=== PATIENT | female | born 1940 | race Caucasian/White ===

== ENCOUNTER 2017-12-10 12:16 | Inpatient (IN) | payer MEDICARE, OTHER ==
[~2017-12-10] VITALS: Ht 157.5 cm; Wt 63.5 kg
[~2017-12-10 12:16] MED LIST: AMIO200T57 PO; ASPI-611 PO; LISI40TA4 PO; METF-517 PO; METO25TA6 PO; VITC500T PO
[2017-12-10] MEDS ORDERED: clopidogrel 75mg tablet PO ONE (19:55)
[2017-12-10 20:42] LABS: BASOPHILS % (AUTO) 0.6 % (0-1); EOSINOPHILS # (AUTO) 0.3 X10'3 (0-0.9); EOSINOPHILS % (AUTO) 3.9 % (0-6); HEMATOCRIT 28.4 % (35.0-45.0); HEMOGLOBIN 9.6 g/dl (12.0-16.0); LYMPHOCYTES # (AUTO) 2.6 X10'3 (1.1-4.8); LYMPHOCYTES % (AUTO) 39.7 % (21-51); MEAN CORPUSCULAR HEMOGLOBIN 31.4 PG (27.0-31.0); MEAN CORPUSCULAR VOLUME 92.3 FL (78-98); MONOCYTES # (AUTO) 0.4 X10'3 (0-0.9); MONOCYTES % (AUTO) 5.9 % (2-12); NEUTROPHILS # (AUTO) 3.3 X10'3 (1.8-7.7); NEUTROPHILS % (AUTO) 49.9 % (42-75); PLATELET COUNT 236 X10'3 (140-440); RED BLOOD COUNT 3.08 X10'6 (4.20-5.60); RED CELL DISTRIBUTION WIDTH 13.9 % (11.5-14.5); WHITE BLOOD COUNT 6.5 X10'3 (4.5-11.0)
[2017-12-10 20:54] LABS: PARTIAL THROMBOPLASTIN TIME 27 SECONDS (22-32); PROTHROMBIN TIME 10.1 SECONDS (9.0-12.0)
[2017-12-10 20:57] LABS: ALANINE AMINOTRANSFERASE 9 U/L (12-78); ALBUMIN 3.6 G/DL (3.4-5.0); ALBUMIN/GLOBULIN RATIO 1.1 (1.1-1.5); ALKALINE PHOSPHATASE 89 IU/L (46-116); ANION GAP 14 (8-16); ASPARTATE AMINO TRANSFERASE 5 U/L (10-37); BILIRUBIN,TOTAL 0.2 MG/DL (0.1-1.0); BLOOD UREA NITROGEN 37 MG/DL (7-18); BUN/CREATININE RATIO 19.8 (6.6-38.0); CALCIUM 8.9 MG/DL (8.5-10.1); CHLORIDE 109 MMOL/L (99-107); CREATININE 1.87 MG/DL (0.40-0.90); GLUCOSE 132 MG/DL (70-104); SODIUM 145 MMOL/L (135-145); TOTAL CARBON DIOXIDE 22.3 MMOL/L (24-32); TOTAL PROTEIN 6.8 G/DL (6.4-8.2); eGFR 26 ML/MIN
[2017-12-11] VITALS (14 sets, daily range): BP systolic 87–118; BP diastolic 38–46
[2017-12-11] MEDS ORDERED: LORazepam 2 mg/ml vial IV ONE (00:10)
[2017-12-11] MEDS ORDERED: magnesium hydroxide 30ml (MOM) UD suspension PO PRN (02:20)
[2017-12-11] MEDS ORDERED: glucagon, human recombinant 1mg kit SUBCUT PRN (02:20)
[2017-12-11] MEDS ORDERED: diphenhydrAMINE 25mg capsule PO PRN (02:20)
[2017-12-11] MEDS ORDERED: dextrose ORAL solution 15 GM/59 ML bottle PO PRN ×2 (02:20)
[2017-12-11] MEDS ORDERED: HYDROmorphone inj. 0.5 MG/0.5 ML DISP.SYRIN IV PRN ×4 (02:20→17:25)
[2017-12-11] MEDS ORDERED: HYDROcodone/acetaminophen 10/325mg tab PO PRN (02:20)
[2017-12-11] MEDS ORDERED: ondansetron/PF 4mg/2ml inj IV PRN ×2 (02:20→17:25)
[2017-12-11] MEDS ORDERED: metoclopramide 5 mg/ml inj IV PRN (02:20)
[2017-12-11] MEDS ORDERED: MESSAGE TO PHARMACY PO ONE (02:20)
[2017-12-11] MEDS ORDERED: acetaminophen 650mg rectal suppository RC PRN (02:20)
[2017-12-11] MEDS ORDERED: bisacodyl 10mg suppository rectal RC PRN (02:20)
[2017-12-11] MEDS ORDERED: dextrose 50%-water 50ml dispensing syringe IV PRN ×2 (02:20)
[2017-12-11] MEDS ORDERED: diphenhydrAMINE 50 mg/ml inj IV PRN (02:20)
[2017-12-11] MEDS ORDERED: acetaminophen 325mg tablet PO PRN ×2 (02:20)
[2017-12-11] MEDS ORDERED: mag hydrox/Alum hydrox/simeth 30ml oral suspension PO PRN (02:20)
[2017-12-11 02:47] LABS: HEMOGLOBIN A1C 7.9 % (4.5-6.2)
[2017-12-11 02:53] LABS: MAGNESIUM 1.6 MG/DL (1.5-2.4); PHOSPHORUS 3.8 MG/DL (2.3-4.5)
[2017-12-11] MEDS: normal saline 1000ml 1,000 ML IV SCH ×2 (05:36→14:04)
[2017-12-11] MEDS: metoprolol tartrate 25mg tablet PO SCH ×3 (08:00→20:00)
[2017-12-11] MEDS: pantoprazole 40mg Tablet.DR PO SCH (08:07)
[2017-12-11] MEDS: aspirin 81mg tablet.DR PO SCH (08:08)
[2017-12-11] MEDS: amiodarone 200mg tablet PO SCH (08:08)
[2017-12-11] MEDS: lisinopril 20mg tablet PO SCH ×2 (08:08→20:00)
[2017-12-11] MEDS: clopidogrel 75mg tablet PO SCH (08:08)
[2017-12-11] MEDS: ascorbic acid 500mg tablet PO SCH (08:08)
[2017-12-11] MEDS: heparin, porcine 5000 units/ml vial SQ SCH ×2 (08:09→20:00)
[2017-12-11] MEDS ORDERED: LEVO50TA8 PO (12:04)
[2017-12-11] MEDS ORDERED: ESCI20TA38 PO (12:04)
[2017-12-11] MEDS ORDERED: CLOP75TA35 PO (12:04)
[2017-12-11] MEDS ORDERED: ATOR40TA72 (12:05)
[2017-12-11] MEDS ORDERED: ceFAZolin 2gm in dextrose, iso 100 ML IV ONE (13:20)
[2017-12-11] MEDS ORDERED: ceFAZolin 1000mg inj ONE ×4 (13:31→18:49)
[2017-12-11] MEDS ORDERED: heparin 10,000 units/1 ML INJ ONE ×2 (13:31→14:49)
[2017-12-11] MEDS ORDERED: midazolam 2 mg/2 ml injection ONE (14:25)
[2017-12-11] MEDS ORDERED: fentaNYL /PF 50mcg/ml 5ml ampule ONE ×2 (14:26→19:19)
[2017-12-11] MEDS ORDERED: sevoflurane 250ml liquid IH ONE (14:28)
[2017-12-11] MEDS ORDERED: propofol inj 20 ML IV ONE (17:02)
[2017-12-11] MEDS ORDERED: albumin (Human) 5% 250ml 250 ML IV ONE ×2 (17:02→17:03)
[2017-12-11] MEDS ORDERED: LIDOcaine 2% (20mg/ml) 5ml vial ONE (17:02)
[2017-12-11] MEDS ORDERED: heparin 1,000unit/ml 10ml vial 10 ML ONE (17:03)
[2017-12-11] MEDS ORDERED: ePHEDrine 50MG/ML INJ. ONE (17:03)
[2017-12-11] MEDS ORDERED: rocuronium 10mg/ml inj IV ONE (17:03)
[2017-12-11] MEDS ORDERED: ringers solution, lacted 1,000 ML IV SCH (17:24)
[2017-12-11] MEDS ORDERED: fentaNYL/PF 50MCG/1 ML 2ML syringe IV PRN ×3 (17:25→19:30)
[2017-12-11] MEDS ORDERED: meperidine/PF 50mg/ml syringe IV PRN (17:25)
[2017-12-11] MEDS ORDERED: proCHLORperazine 10 MG/2 ml inj IV PRN (17:25)
[2017-12-11] MEDS ORDERED: HYDROmorphone 1 mg/ml syringe ONE (19:19)
[2017-12-11] MEDS ORDERED: midazolam 2 mg/2 ml injection IV ONE (19:30)
[2017-12-11] MEDS ORDERED: FENTANYL-0.9 % NACL/PF 100 ML IV SCH (20:00)
[2017-12-11] MEDS ORDERED: FENTANYL-0.9 % NACL/PF 100 ML IV PRN (20:02)
[2017-12-11 20:36] LABS: ABG BASE EXCESS -9.2 mmol/L (-2.0-3.0); ABG HCO3 16.2 mmol/L (22.0-26.0); ABG OXYGEN SATURATION 98.8 % (95-98); ABG PCO2 (T) 31.9 mmHg (32.0-45.0); ABG PO2 (T) 184.3 mmHg (83-108); FCOHb 0.5 % (0.5-1.5); FMetHb 0.3 % (0.3-1.12); PATIENT TEMPERATURE 36.5; PEEP 5 cm H2O; RESPIRATORY RATE 12 b/min; RESPIRATORY RATE (OBSERVED) 12 b/min; TIDAL VOLUME 400 mL; TOTAL HEMOGLOBIN 5.8 G/dl (12.0-16.0)
[2017-12-11 20:40] LABS: BASOPHILS % (AUTO) 0.2 % (0-1); EOSINOPHILS # (AUTO) 0.1 X10'3 (0-0.9); EOSINOPHILS % (AUTO) 1.3 % (0-6); LYMPHOCYTES # (AUTO) 0.9 X10'3 (1.1-4.8); LYMPHOCYTES % (AUTO) 16.7 % (21-51); MEAN CORPUSCULAR HEMOGLOBIN 31.5 PG (27.0-31.0); MEAN CORPUSCULAR VOLUME 92.4 FL (78-98); MEAN PLATELET VOLUME 8.3 FL (7.4-10.4); MONOCYTES # (AUTO) 0.3 X10'3 (0-0.9); MONOCYTES % (AUTO) 4.9 % (2-12); NEUTROPHILS # (AUTO) 4.3 X10'3 (1.8-7.7); NEUTROPHILS % (AUTO) 76.9 % (42-75); PLATELET COUNT 152 X10'3 (140-440); RED BLOOD COUNT 1.75 X10'6 (4.20-5.60); RED CELL DISTRIBUTION WIDTH 14.4 % (11.5-14.5); WHITE BLOOD COUNT 5.6 X10'3 (4.5-11.0)
[2017-12-11 20:54] LABS: ALANINE AMINOTRANSFERASE 11 U/L (12-78); ALBUMIN 2.2 G/DL (3.4-5.0); ALBUMIN/GLOBULIN RATIO 1.6 (1.1-1.5); ALKALINE PHOSPHATASE 30 IU/L (46-116); ANION GAP 10 (8-16); ASPARTATE AMINO TRANSFERASE 15 U/L (10-37); BILIRUBIN,TOTAL 0.2 MG/DL (0.1-1.0); BLOOD UREA NITROGEN 23 MG/DL (7-18); BUN/CREATININE RATIO 17.2 (6.6-38.0); CHLORIDE 114 MMOL/L (99-107); CREATININE 1.34 MG/DL (0.40-0.90); GLUCOSE 132 MG/DL (70-104); HEMATOCRIT 16.2 % (35.0-45.0); HEMOGLOBIN 5.5 g/dl (12.0-16.0); MAGNESIUM 1.2 MG/DL (1.5-2.4); SODIUM 143 MMOL/L (135-145); TOTAL CARBON DIOXIDE 19.5 MMOL/L (24-32); TOTAL PROTEIN 3.6 G/DL (6.4-8.2); eGFR 39 ML/MIN
[2017-12-11] MEDS ORDERED: temazepam 15mg capsule PO PRN (21:00)
[2017-12-11] MEDS: insulin glargine (Lantus) pen - multi-dose SQ SCH (21:00)
[2017-12-11 21:09] LABS: INR 1.3 INR; PROTHROMBIN TIME 13.2 SECONDS (9.0-12.0)
[2017-12-11 21:13] LABS: PARTIAL THROMBOPLASTIN TIME > 153 SECONDS (22-32)
[2017-12-11] MEDS ORDERED: NORepinephrine 8mg/ 250ml NS 250 ML IV PRN (21:23)
[2017-12-11] MEDS ORDERED: protamine sulf. 10mg/ml inj. IV ONE (21:35)
[2017-12-11] MEDS: clindamycin 600mg/D5W 50ml 50 ML IV SCH (21:49)
[2017-12-11] MEDS: midazolam 100mg in NS 100ml 100 ML IV PRN (22:18)
[2017-12-11] MEDS: Potassium Cl inj 20 MEQ in ringers solution, lacted 1,000 ML IV SCH (22:20)
[2017-12-12] VITALS (24 sets, daily range): BP systolic 98–133; BP diastolic 36–55
[2017-12-12 02:30] LABS: BASOPHILS % (AUTO) 0.2 % (0-1); EOSINOPHILS # (AUTO) 0.2 X10'3 (0-0.9); EOSINOPHILS % (AUTO) 1.6 % (0-6); HEMATOCRIT 28.2 % (35.0-45.0); HEMOGLOBIN 9.5 g/dl (12.0-16.0); LYMPHOCYTES # (AUTO) 0.9 X10'3 (1.1-4.8); LYMPHOCYTES % (AUTO) 7.2 % (21-51); MEAN CORPUSCULAR HEMOGLOBIN 30.4 PG (27.0-31.0); MEAN CORPUSCULAR HGB CONC 33.8 % (33.0-36.5); MEAN CORPUSCULAR VOLUME 89.8 FL (78-98); MEAN PLATELET VOLUME 8.2 FL (7.4-10.4); MONOCYTES # (AUTO) 0.9 X10'3 (0-0.9); MONOCYTES % (AUTO) 7.4 % (2-12); NEUTROPHILS # (AUTO) 10.2 X10'3 (1.8-7.7); NEUTROPHILS % (AUTO) 83.6 % (42-75); PLATELET COUNT 152 X10'3 (140-440); RED BLOOD COUNT 3.14 X10'6 (4.20-5.60); RED CELL DISTRIBUTION WIDTH 15.3 % (11.5-14.5); WHITE BLOOD COUNT 12.2 X10'3 (4.5-11.0)
[2017-12-12 02:41] LABS: INR 1.1 INR; PARTIAL THROMBOPLASTIN TIME 30 SECONDS (22-32); PROTHROMBIN TIME 11.7 SECONDS (9.0-12.0)
[2017-12-12 02:45] LABS: ALANINE AMINOTRANSFERASE 10 U/L (12-78); ALBUMIN 2.6 G/DL (3.4-5.0); ALBUMIN/GLOBULIN RATIO 1.4 (1.1-1.5); ALKALINE PHOSPHATASE 39 IU/L (46-116); ANION GAP 11 (8-16); ASPARTATE AMINO TRANSFERASE 13 U/L (10-37); BILIRUBIN,TOTAL 0.3 MG/DL (0.1-1.0); BLOOD UREA NITROGEN 25 MG/DL (7-18); BUN/CREATININE RATIO 15.8 (6.6-38.0); CALCIUM 7.2 MG/DL (8.5-10.1); CHLORIDE 111 MMOL/L (99-107); CREATININE 1.58 MG/DL (0.40-0.90); GLUCOSE 222 MG/DL (70-104); POTASSIUM 4.7 MMOL/L (3.5-5.1); SODIUM 143 MMOL/L (135-145); TOTAL CARBON DIOXIDE 20.7 MMOL/L (24-32); TOTAL PROTEIN 4.5 G/DL (6.4-8.2); eGFR 32 ML/MIN
[2017-12-12] MEDS: clindamycin 600mg/D5W 50ml 50 ML IV SCH ×4 (02:47→20:29)
[2017-12-12 03:26] LABS: ABG BASE EXCESS -11.9 mmol/L (-2.0-3.0); ABG OXYGEN SATURATION 97.3 % (95-98); ABG PCO2 (T) 43.7 mmHg (32.0-45.0); ABG PH (T) 7.178 (7.350-7.450); ABG PO2 (T) 114.5 mmHg (83-108); FCOHb 0.3 % (0.5-1.5); FMetHb 0.2 % (0.3-1.12); FO2Hb 96.8 % (94-100); MINUTE VOLUME 5 L/min; PATIENT TEMPERATURE 36.5; PEEP 5 cm H2O; RESPIRATORY RATE 12 b/min; RESPIRATORY RATE (OBSERVED) 12 b/min; TIDAL VOLUME 400 mL; TOTAL HEMOGLOBIN 10.3 G/dl (12.0-16.0)
[2017-12-12] MEDS: Potassium Cl inj 20 MEQ in ringers solution, lacted 1,000 ML IV SCH ×3 (03:51→16:31)
[2017-12-12] MEDS: lisinopril 20mg tablet PO SCH ×2 (08:00→20:28)
[2017-12-12] MEDS: levoFLOXACIN-Levaquin 500mg/D5 100 ML IV SCH (08:21)
[2017-12-12] MEDS: ascorbic acid 500mg tablet PO SCH (08:23)
[2017-12-12] MEDS: pantoprazole 40mg Tablet.DR PO SCH (08:23)
[2017-12-12] MEDS: amiodarone 200mg tablet PO SCH (08:23)
[2017-12-12] MEDS: metoprolol tartrate 25mg tablet PO SCH ×2 (08:24→20:28)
[2017-12-12] MEDS: insulin Lispro (HumaLOG) vial - multi-dose SQ SCH ×2 (08:50→13:52)
[2017-12-12 11:11] LABS: ABG BASE EXCESS -9.6 mmol/L (-2.0-3.0); ABG HCO3 16.1 mmol/L (22.0-26.0); ABG OXYGEN SATURATION 97.3 % (95-98); ABG PCO2 (T) 34.3 mmHg (32.0-45.0); ABG PH (T) 7.289 (7.350-7.450); ABG PO2 (T) 110.6 mmHg (83-108); FCOHb 0.3 % (0.5-1.5); FMetHb 0.3 % (0.3-1.12); FO2Hb 96.7 % (94-100); MINUTE VOLUME 7 L/min; PEEP 5 cm H2O; RESPIRATORY RATE 16 b/min; RESPIRATORY RATE (OBSERVED) 16 b/min; TIDAL VOLUME 400 mL; TOTAL HEMOGLOBIN 8.8 G/dl (12.0-16.0)
[2017-12-12] MEDS: heparin, porcine 5000 units/ml vial SQ SCH ×2 (11:20→20:28)
[2017-12-12] MEDS: aspirin 81mg tablet.DR PO SCH (11:20)
[2017-12-12] MEDS: clopidogrel 75mg tablet PO SCH (11:20)
[2017-12-12] MEDS ORDERED: mineral oil/petrolatum ophthal oint EACHEYE SCH (20:00)
[2017-12-12] MEDS: mineral oil/petrolatum ophthal oint EACHEYE SCH (20:23)
[2017-12-12] MEDS: insulin glargine (Lantus) pen - multi-dose SQ SCH (21:00)
[2017-12-13] VITALS (29 sets, daily range): BP systolic 107–177; BP diastolic 40–66
[2017-12-13] MEDS: Potassium Cl inj 20 MEQ in ringers solution, lacted 1,000 ML IV SCH ×3 (01:58→19:58)
[2017-12-13] MEDS: clindamycin 600mg/D5W 50ml 50 ML IV SCH ×4 (02:44→19:56)
[2017-12-13] MEDS: mineral oil/petrolatum ophthal oint EACHEYE SCH ×4 (02:44→19:56)
[2017-12-13 02:49] LABS: BASOPHILS % (AUTO) 0.3 % (0-1); EOSINOPHILS # (AUTO) 0.1 X10'3 (0-0.9); EOSINOPHILS % (AUTO) 1.2 % (0-6); HEMOGLOBIN 7.4 g/dl (12.0-16.0); LYMPHOCYTES % (AUTO) 17.6 % (21-51); MEAN CORPUSCULAR HEMOGLOBIN 30.5 PG (27.0-31.0); MEAN CORPUSCULAR HGB CONC 34.3 % (33.0-36.5); MEAN CORPUSCULAR VOLUME 88.9 FL (78-98); MEAN PLATELET VOLUME 8.4 FL (7.4-10.4); MONOCYTES # (AUTO) 0.6 X10'3 (0-0.9); MONOCYTES % (AUTO) 11.5 % (2-12); NEUTROPHILS # (AUTO) 3.9 X10'3 (1.8-7.7); NEUTROPHILS % (AUTO) 69.4 % (42-75); PLATELET COUNT 113 X10'3 (140-440); RED BLOOD COUNT 2.43 X10'6 (4.20-5.60); RED CELL DISTRIBUTION WIDTH 15.9 % (11.5-14.5); WHITE BLOOD COUNT 5.6 X10'3 (4.5-11.0)
[2017-12-13 03:00] LABS: HEMATOCRIT 21.6 % (35.0-45.0)
[2017-12-13 03:16] LABS: ALBUMIN 2.1 G/DL (3.4-5.0); ALBUMIN/GLOBULIN RATIO 1.1 (1.1-1.5); ALKALINE PHOSPHATASE 31 IU/L (46-116); ANION GAP 10 (8-16); ASPARTATE AMINO TRANSFERASE 18 U/L (10-37); BILIRUBIN,TOTAL 0.2 MG/DL (0.1-1.0); BLOOD UREA NITROGEN 19 MG/DL (7-18); BUN/CREATININE RATIO 14.6 (6.6-38.0); CHLORIDE 113 MMOL/L (99-107); GLUCOSE 120 MG/DL (70-104); POTASSIUM 4.2 MMOL/L (3.5-5.1); SODIUM 142 MMOL/L (135-145); TOTAL CARBON DIOXIDE 18.7 MMOL/L (24-32); eGFR 40 ML/MIN
[2017-12-13 03:19] LABS: ALANINE AMINOTRANSFERASE < 6 U/L (12-78)
[2017-12-13 03:21] LABS: ABG BASE EXCESS -2.4 mmol/L (-2.0-3.0); ABG HCO3 21.6 mmol/L (22.0-26.0); ABG OXYGEN SATURATION 97.4 % (95-98); ABG PCO2 (T) 33.2 mmHg (32.0-45.0); ABG PO2 (T) 105.9 mmHg (83-108); FCOHb 0.3 % (0.5-1.5); FMetHb 0.2 % (0.3-1.12); FO2Hb 96.9 % (94-100); MINUTE VOLUME 7 L/min; PATIENT TEMPERATURE 36.5; PEEP 5 cm H2O; RESPIRATORY RATE 16 b/min; RESPIRATORY RATE (OBSERVED) 16 b/min; TIDAL VOLUME 400 mL; TOTAL HEMOGLOBIN 7.9 G/dl (12.0-16.0)
[2017-12-13] MEDS: midazolam 100mg in NS 100ml 100 ML IV PRN (04:49)
[2017-12-13] MEDS: lisinopril 20mg tablet PO SCH ×2 (08:14→19:57)
[2017-12-13] MEDS: ascorbic acid 500mg tablet PO SCH (08:14)
[2017-12-13] MEDS: pantoprazole 40mg Tablet.DR PO SCH (08:14)
[2017-12-13] MEDS: aspirin 81mg tablet.DR PO SCH (08:14)
[2017-12-13] MEDS: clopidogrel 75mg tablet PO SCH (08:14)
[2017-12-13] MEDS: heparin, porcine 5000 units/ml vial SQ SCH ×2 (08:15→19:57)
[2017-12-13] MEDS: levoFLOXACIN-Levaquin 500mg/D5 100 ML IV SCH (08:15)
[2017-12-13] MEDS: metoprolol tartrate 25mg tablet PO SCH ×2 (09:23→19:57)
[2017-12-13] MEDS: amiodarone 200mg tablet PO SCH (09:23)
[2017-12-13 09:52] LABS: HEMOGLOBIN 8.3 g/dl (12.0-16.0); MEAN CORPUSCULAR HEMOGLOBIN 31.2 PG (27.0-31.0); MEAN CORPUSCULAR HGB CONC 34.7 % (33.0-36.5); MEAN CORPUSCULAR VOLUME 89.9 FL (78-98); MEAN PLATELET VOLUME 8.4 FL (7.4-10.4); PLATELET COUNT 117 X10'3 (140-440); RED BLOOD COUNT 2.67 X10'6 (4.20-5.60); RED CELL DISTRIBUTION WIDTH 15.8 % (11.5-14.5); WHITE BLOOD COUNT 6.3 X10'3 (4.5-11.0)
[2017-12-13] MEDS: dexmedetomidin/NS 400mcg/100ml 100 ML IV SCH (10:58)
[2017-12-13] MEDS ORDERED: ipratropium/albuterol 3ml nebule NEB PRN (12:40)
[2017-12-13] MEDS ORDERED: naloxone 0.4 mg/ml inj IV PRN ×2 (12:40)
[2017-12-13] MEDS ORDERED: racepinephrine 11.25mg/0.5ml nebule NEB PRN (12:40)
[2017-12-13] MEDS ORDERED: CADD PCA waste documentation MC PRN ×2 (12:40)
[2017-12-13] MEDS ORDERED: HYDROmorphone/NS 1 mg/ml CADD 50 ML IV SCH (12:55)
[2017-12-13] MEDS: ipratropium/albuterol 3ml nebule NEB SCH ×2 (15:00→21:12)
[2017-12-13] MEDS: sennosides/docusate sodium tablet PO SCH (19:57)
[2017-12-13] MEDS: nitroGLYCERIN-Tridil 50MG/D5W 250 ML IV PRN (19:58)
[2017-12-13] MEDS: docusate sod 100mg capsule PO SCH (19:59)
[2017-12-13] MEDS: insulin glargine (Lantus) pen - multi-dose SQ SCH (21:00)
[2017-12-14] VITALS (24 sets, daily range): BP systolic 99–164; BP diastolic 37–75
[2017-12-14] MEDS: mineral oil/petrolatum ophthal oint EACHEYE SCH ×2 (01:41→08:35)
[2017-12-14] MEDS: clindamycin 600mg/D5W 50ml 50 ML IV SCH ×4 (01:41→20:22)
[2017-12-14] MEDS: nitroGLYCERIN-Tridil 50MG/D5W 250 ML IV PRN (01:42)
[2017-12-14 03:25] LABS: BASOPHILS % (AUTO) 0.3 % (0-1); EOSINOPHILS # (AUTO) 0.1 X10'3 (0-0.9); EOSINOPHILS % (AUTO) 1.1 % (0-6); HEMATOCRIT 22.1 % (35.0-45.0); HEMOGLOBIN 7.7 g/dl (12.0-16.0); LYMPHOCYTES # (AUTO) 0.6 X10'3 (1.1-4.8); LYMPHOCYTES % (AUTO) 8.7 % (21-51); MEAN CORPUSCULAR HEMOGLOBIN 31.4 PG (27.0-31.0); MEAN CORPUSCULAR HGB CONC 34.8 % (33.0-36.5); MEAN CORPUSCULAR VOLUME 90.2 FL (78-98); MEAN PLATELET VOLUME 8.9 FL (7.4-10.4); MONOCYTES # (AUTO) 0.8 X10'3 (0-0.9); MONOCYTES % (AUTO) 11.4 % (2-12); NEUTROPHILS # (AUTO) 5.6 X10'3 (1.8-7.7); NEUTROPHILS % (AUTO) 78.5 % (42-75); PLATELET COUNT 105 X10'3 (140-440); RED BLOOD COUNT 2.45 X10'6 (4.20-5.60); WHITE BLOOD COUNT 7.1 X10'3 (4.5-11.0)
[2017-12-14] MEDS: ipratropium/albuterol 3ml nebule NEB SCH ×4 (03:32→20:54)
[2017-12-14 03:46] LABS: ABG HCO3 20.4 mmol/L (22.0-26.0); ABG OXYGEN SATURATION 97.1 % (95-98); ABG PCO2 (T) 30.8 mmHg (32.0-45.0); ABG PH (T) 7.443 (7.350-7.450); ABG PO2 (T) 95.2 mmHg (83-108); FCOHb 0.3 % (0.5-1.5); FMetHb 0.7 % (0.3-1.12); FO2Hb 96.1 % (94-100); MINUTE VOLUME 7 L/min; PATIENT TEMPERATURE 37.8; PEEP 5 cm H2O; RESPIRATORY RATE (OBSERVED) 10 b/min; TOTAL HEMOGLOBIN 7.8 G/dl (12.0-16.0)
[2017-12-14 03:57] LABS: ALANINE AMINOTRANSFERASE 6 U/L (12-78); ALBUMIN/GLOBULIN RATIO 0.9 (1.1-1.5); ALKALINE PHOSPHATASE 34 IU/L (46-116); ANION GAP 12 (8-16); ASPARTATE AMINO TRANSFERASE 28 U/L (10-37); BILIRUBIN,TOTAL 0.4 MG/DL (0.1-1.0); BLOOD UREA NITROGEN 17 MG/DL (7-18); BUN/CREATININE RATIO 11.9 (6.6-38.0); CALCIUM 7.7 MG/DL (8.5-10.1); CHLORIDE 107 MMOL/L (99-107); CREATININE 1.43 MG/DL (0.40-0.90); GLUCOSE 168 MG/DL (70-104); POTASSIUM 4.3 MMOL/L (3.5-5.1); SODIUM 137 MMOL/L (135-145); TOTAL CARBON DIOXIDE 18.4 MMOL/L (24-32); TOTAL PROTEIN 4.3 G/DL (6.4-8.2); eGFR 36 ML/MIN
[2017-12-14] MEDS: Potassium Cl inj 20 MEQ in ringers solution, lacted 1,000 ML IV SCH ×3 (06:06→16:44)
[2017-12-14] MEDS: docusate sod 100mg capsule PO SCH ×2 (08:00→20:22)
[2017-12-14] MEDS: lisinopril 20mg tablet PO SCH ×2 (08:00→20:22)
[2017-12-14] MEDS: K and/or MAG REPLACEMENT MC SCH (08:00)
[2017-12-14] MEDS: metoprolol tartrate 25mg tablet PO SCH ×2 (08:31→20:21)
[2017-12-14] MEDS: levoFLOXACIN-Levaquin 500mg/D5 100 ML IV SCH (08:31)
[2017-12-14] MEDS: heparin, porcine 5000 units/ml vial SQ SCH ×2 (08:31→20:21)
[2017-12-14] MEDS: sennosides/docusate sodium tablet PO SCH ×2 (08:31→20:22)
[2017-12-14] MEDS: ascorbic acid 500mg tablet PO SCH (08:32)
[2017-12-14] MEDS: pantoprazole 40mg Tablet.DR PO SCH (08:32)
[2017-12-14] MEDS: amiodarone 200mg tablet PO SCH (08:32)
[2017-12-14] MEDS: clopidogrel 75mg tablet PO SCH (08:32)
[2017-12-14] MEDS: aspirin 81mg tablet.DR PO SCH (08:32)
[2017-12-14 09:07] LABS: PHOSPHORUS 2.7 MG/DL (2.3-4.5)
[2017-12-14] MEDS ORDERED: magnesium 2GM in 50ml NS 50 ML IV PRN (09:15)
[2017-12-14] MEDS ORDERED: potassium Cl 40MEQ/250ML bag 250 ML IV PRN ×2 (09:15)
[2017-12-14] MEDS ORDERED: magnesium 4gm in 100ml NS 100 ML IV PRN (09:15)
[2017-12-14] MEDS: niCARDipine/sod cl 20mg/200ml 200 ML IV SCH ×3 (14:33→22:20)
[2017-12-14] MEDS ORDERED: HYDROmorphone 1 mg/ml syringe IV PRN (19:35)
[2017-12-14] MEDS: lactobacillus rhamnosus 10,000 MMU CELLS/CAPSULE PO SCH (20:22)
[2017-12-14] MEDS: insulin glargine (Lantus) pen - multi-dose SQ SCH (20:22)
[2017-12-14] MEDS: dexmedetomidin/NS 400mcg/100ml 100 ML IV SCH (23:09)
[2017-12-15] VITALS (24 sets, daily range): BP systolic 102–160; BP diastolic 44–78
[2017-12-15] MEDS: HYDROmorphone 1 mg/ml syringe IV PRN ×4 (00:25→23:29)
[2017-12-15] MEDS: Potassium Cl inj 20 MEQ in ringers solution, lacted 1,000 ML IV SCH (00:27)
[2017-12-15] MEDS: clindamycin 600mg/D5W 50ml 50 ML IV SCH ×4 (01:39→19:18)
[2017-12-15] MEDS: niCARDipine/sod cl 20mg/200ml 200 ML IV SCH ×6 (02:20→21:42)
[2017-12-15] MEDS: ipratropium/albuterol 3ml nebule NEB SCH ×4 (03:00→20:01)
[2017-12-15 03:33] LABS: BASOPHILS % (AUTO) 0.4 % (0-1); EOSINOPHILS # (AUTO) 0.1 X10'3 (0-0.9); EOSINOPHILS % (AUTO) 1.6 % (0-6); HEMATOCRIT 22.9 % (35.0-45.0); HEMOGLOBIN 7.9 g/dl (12.0-16.0); LYMPHOCYTES # (AUTO) 0.9 X10'3 (1.1-4.8); LYMPHOCYTES % (AUTO) 12.5 % (21-51); MEAN CORPUSCULAR HEMOGLOBIN 31.1 PG (27.0-31.0); MEAN CORPUSCULAR HGB CONC 34.6 % (33.0-36.5); MEAN PLATELET VOLUME 8.3 FL (7.4-10.4); MONOCYTES # (AUTO) 0.6 X10'3 (0-0.9); MONOCYTES % (AUTO) 8.4 % (2-12); NEUTROPHILS # (AUTO) 5.5 X10'3 (1.8-7.7); NEUTROPHILS % (AUTO) 77.1 % (42-75); PLATELET COUNT 121 X10'3 (140-440); RED BLOOD COUNT 2.55 X10'6 (4.20-5.60); RED CELL DISTRIBUTION WIDTH 15.4 % (11.5-14.5); WHITE BLOOD COUNT 7.2 X10'3 (4.5-11.0)
[2017-12-15 03:44] LABS: ALANINE AMINOTRANSFERASE 11 U/L (12-78); ALBUMIN/GLOBULIN RATIO 0.7 (1.1-1.5); ALKALINE PHOSPHATASE 39 IU/L (46-116); ANION GAP 8 (8-16); ASPARTATE AMINO TRANSFERASE 25 U/L (10-37); BILIRUBIN,TOTAL 0.4 MG/DL (0.1-1.0); BLOOD UREA NITROGEN 16 MG/DL (7-18); BUN/CREATININE RATIO 10.1 (6.6-38.0); CHLORIDE 109 MMOL/L (99-107); CREATININE 1.58 MG/DL (0.40-0.90); GLUCOSE 108 MG/DL (70-104); MAGNESIUM 2.4 MG/DL (1.5-2.4); PHOSPHORUS 3.2 MG/DL (2.3-4.5); POTASSIUM 4.8 MMOL/L (3.5-5.1); SODIUM 140 MMOL/L (135-145); TOTAL CARBON DIOXIDE 22.6 MMOL/L (24-32); TOTAL PROTEIN 4.7 G/DL (6.4-8.2); eGFR 32 ML/MIN
[2017-12-15] MEDS: K and/or MAG REPLACEMENT MC SCH (07:05)
[2017-12-15] MEDS: pantoprazole 40mg Tablet.DR PO SCH (07:39)
[2017-12-15] MEDS: docusate sod 100mg capsule PO SCH ×2 (07:40→19:20)
[2017-12-15] MEDS: amiodarone 200mg tablet PO SCH (07:40)
[2017-12-15] MEDS: lactobacillus rhamnosus 10,000 MMU CELLS/CAPSULE PO SCH ×2 (07:40→19:19)
[2017-12-15] MEDS: aspirin 81mg tablet.DR PO SCH (07:40)
[2017-12-15] MEDS: ascorbic acid 500mg tablet PO SCH (07:41)
[2017-12-15] MEDS: multivitamins, therapeutics tablet PO SCH (07:41)
[2017-12-15] MEDS: clopidogrel 75mg tablet PO SCH (07:41)
[2017-12-15] MEDS: heparin, porcine 5000 units/ml vial SQ SCH ×2 (07:42→19:19)
[2017-12-15] MEDS: metoprolol tartrate 25mg tablet PO SCH ×2 (07:45→19:19)
[2017-12-15] MEDS: sennosides/docusate sodium tablet PO SCH ×2 (07:45→19:20)
[2017-12-15] MEDS: lisinopril 20mg tablet PO SCH ×2 (07:46→19:19)
[2017-12-15] MEDS: LACTOSE-FREE FOOD 237ML (BOOST) PO SCH ×2 (13:15→19:19)
[2017-12-15] MEDS: insulin glargine (Lantus) pen - multi-dose SQ SCH (19:20)
[2017-12-16] VITALS (21 sets, daily range): BP systolic 120–169; BP diastolic 44–75
[2017-12-16] MEDS: clindamycin 600mg/D5W 50ml 50 ML IV SCH ×4 (02:36→19:24)
[2017-12-16] MEDS: niCARDipine/sod cl 20mg/200ml 200 ML IV SCH ×4 (02:37→14:19)
[2017-12-16 02:48] LABS: BASOPHILS % (AUTO) 0.3 % (0-1); EOSINOPHILS # (AUTO) 0.1 X10'3 (0-0.9); EOSINOPHILS % (AUTO) 1.6 % (0-6); HEMATOCRIT 24.9 % (35.0-45.0); HEMOGLOBIN 8.5 g/dl (12.0-16.0); LYMPHOCYTES # (AUTO) 0.9 X10'3 (1.1-4.8); LYMPHOCYTES % (AUTO) 11.5 % (21-51); MEAN CORPUSCULAR HEMOGLOBIN 31.1 PG (27.0-31.0); MEAN CORPUSCULAR HGB CONC 34.1 % (33.0-36.5); MEAN CORPUSCULAR VOLUME 91.3 FL (78-98); MEAN PLATELET VOLUME 8.5 FL (7.4-10.4); MONOCYTES # (AUTO) 0.8 X10'3 (0-0.9); MONOCYTES % (AUTO) 9.7 % (2-12); NEUTROPHILS # (AUTO) 6.2 X10'3 (1.8-7.7); NEUTROPHILS % (AUTO) 76.9 % (42-75); PLATELET COUNT 167 X10'3 (140-440); RED BLOOD COUNT 2.73 X10'6 (4.20-5.60); RED CELL DISTRIBUTION WIDTH 15.7 % (11.5-14.5); WHITE BLOOD COUNT 8.1 X10'3 (4.5-11.0)
[2017-12-16 03:05] LABS: ALANINE AMINOTRANSFERASE 7 U/L (12-78); ALBUMIN 2.1 G/DL (3.4-5.0); ALBUMIN/GLOBULIN RATIO 0.7 (1.1-1.5); ALKALINE PHOSPHATASE 45 IU/L (46-116); ANION GAP 11 (8-16); ASPARTATE AMINO TRANSFERASE 22 U/L (10-37); BILIRUBIN,TOTAL 0.5 MG/DL (0.1-1.0); BLOOD UREA NITROGEN 15 MG/DL (7-18); BUN/CREATININE RATIO 9.7 (6.6-38.0); CHLORIDE 107 MMOL/L (99-107); CREATININE 1.55 MG/DL (0.40-0.90); GLUCOSE 121 MG/DL (70-104); POTASSIUM 4.3 MMOL/L (3.5-5.1); SODIUM 140 MMOL/L (135-145); TOTAL CARBON DIOXIDE 22.4 MMOL/L (24-32); TOTAL PROTEIN 5.2 G/DL (6.4-8.2); eGFR 33 ML/MIN
[2017-12-16] MEDS: ipratropium/albuterol 3ml nebule NEB SCH ×4 (03:45→20:31)
[2017-12-16] MEDS: HYDROmorphone 1 mg/ml syringe IV PRN (05:32)
[2017-12-16] MEDS: K and/or MAG REPLACEMENT MC SCH (06:47)
[2017-12-16] MEDS: levoFLOXACIN-Levaquin 250mg/D5 50 ML IV SCH (07:29)
[2017-12-16] MEDS: multivitamins, therapeutics tablet PO SCH (07:30)
[2017-12-16] MEDS: clopidogrel 75mg tablet PO SCH (07:30)
[2017-12-16] MEDS: lactobacillus rhamnosus 10,000 MMU CELLS/CAPSULE PO SCH ×2 (07:30→19:23)
[2017-12-16] MEDS: amiodarone 200mg tablet PO SCH (07:30)
[2017-12-16] MEDS: lisinopril 20mg tablet PO SCH (07:30)
[2017-12-16] MEDS: ascorbic acid 500mg tablet PO SCH (07:30)
[2017-12-16] MEDS: metoprolol tartrate 25mg tablet PO SCH ×2 (07:30→19:23)
[2017-12-16] MEDS: aspirin 81mg tablet.DR PO SCH (07:31)
[2017-12-16] MEDS: pantoprazole 40mg Tablet.DR PO SCH (07:31)
[2017-12-16] MEDS: heparin, porcine 5000 units/ml vial SQ SCH ×2 (07:36→19:24)
[2017-12-16] MEDS: docusate sod 100mg capsule PO SCH ×2 (07:37→19:07)
[2017-12-16] MEDS: sennosides/docusate sodium tablet PO SCH ×2 (07:37→19:07)
[2017-12-16] MEDS: LACTOSE-FREE FOOD 237ML (BOOST) PO SCH ×3 (08:55→18:42)
[2017-12-16] MEDS: HYDROcodone/acetaminophen 5mg/325mg tablet PO PRN ×2 (08:56→14:55)
[2017-12-16] MEDS: hydrALAZINE 25 MG tablet PO SCH (15:55)
[2017-12-16] MEDS: risperiDONE 0.25mg tablet PO SCH (19:23)
[2017-12-16] MEDS: insulin glargine (Lantus) pen - multi-dose SQ SCH (21:00)
[2017-12-17] MEDS: hydrALAZINE 25 MG tablet PO SCH ×4 (00:05→23:31)
[2017-12-17] MEDS: clindamycin 600mg/D5W 50ml 50 ML IV SCH ×3 (02:43→14:31)
[2017-12-17] MEDS: ipratropium/albuterol 3ml nebule NEB SCH ×4 (03:00→20:13)
[2017-12-17 07:00] VITALS: BP 168/78
[2017-12-17] MEDS: metoprolol tartrate 25mg tablet PO SCH ×2 (07:47→19:56)
[2017-12-17] MEDS: multivitamins, therapeutics tablet PO SCH (07:47)
[2017-12-17] MEDS: lisinopril 20mg tablet PO SCH (07:48)
[2017-12-17] MEDS: lactobacillus rhamnosus 10,000 MMU CELLS/CAPSULE PO SCH ×2 (07:48→19:56)
[2017-12-17] MEDS: pantoprazole 40mg Tablet.DR PO SCH (07:48)
[2017-12-17] MEDS: clopidogrel 75mg tablet PO SCH (07:48)
[2017-12-17] MEDS: docusate sod 100mg capsule PO SCH ×2 (07:48→19:56)
[2017-12-17] MEDS: ascorbic acid 500mg tablet PO SCH (07:48)
[2017-12-17] MEDS: aspirin 81mg tablet.DR PO SCH (07:49)
[2017-12-17] MEDS: sennosides/docusate sodium tablet PO SCH (07:49)
[2017-12-17] MEDS: amiodarone 200mg tablet PO SCH (07:49)
[2017-12-17] MEDS: heparin, porcine 5000 units/ml vial SQ SCH ×2 (07:49→19:56)
[2017-12-17] MEDS: LACTOSE-FREE FOOD 237ML (BOOST) PO SCH ×3 (08:00→18:03)
[2017-12-17] MEDS: levoFLOXACIN-Levaquin 250mg/D5 50 ML IV SCH (09:16)
[2017-12-17] MEDS: risperiDONE 0.25mg tablet PO SCH (09:38)
[2017-12-17 11:16] VITALS: BP 152/73
[2017-12-17 19:35] VITALS: BP 154/56
[2017-12-17] MEDS: insulin glargine (Lantus) pen - multi-dose SQ SCH (21:00)
[2017-12-17 23:20] VITALS: BP 176/59
[2017-12-18] MEDS: ipratropium/albuterol 3ml nebule NEB SCH ×4 (02:00→20:39)
[2017-12-18 03:52] LABS: BASOPHILS % (AUTO) 0.5 % (0-1); EOSINOPHILS # (AUTO) 0.4 X10'3 (0-0.9); EOSINOPHILS % (AUTO) 4.8 % (0-6); HEMATOCRIT 27.8 % (35.0-45.0); HEMOGLOBIN 9.5 g/dl (12.0-16.0); LYMPHOCYTES # (AUTO) 0.7 X10'3 (1.1-4.8); LYMPHOCYTES % (AUTO) 7.8 % (21-51); MEAN CORPUSCULAR HEMOGLOBIN 30.9 PG (27.0-31.0); MEAN CORPUSCULAR VOLUME 90.8 FL (78-98); MONOCYTES # (AUTO) 0.8 X10'3 (0-0.9); MONOCYTES % (AUTO) 9.5 % (2-12); NEUTROPHILS # (AUTO) 6.6 X10'3 (1.8-7.7); NEUTROPHILS % (AUTO) 77.4 % (42-75); PLATELET COUNT 205 X10'3 (140-440); RED BLOOD COUNT 3.06 X10'6 (4.20-5.60); RED CELL DISTRIBUTION WIDTH 15.2 % (11.5-14.5); WHITE BLOOD COUNT 8.5 X10'3 (4.5-11.0)
[2017-12-18 04:01] LABS: ALBUMIN 2.3 G/DL (3.4-5.0); ANION GAP 11 (8-16); BLOOD UREA NITROGEN 14 MG/DL (7-18); BUN/CREATININE RATIO 8.7 (6.6-38.0); CALCIUM 8.9 MG/DL (8.5-10.1); CHLORIDE 108 MMOL/L (99-107); CREATININE 1.61 MG/DL (0.40-0.90); GLUCOSE 160 MG/DL (70-104); MAGNESIUM 1.7 MG/DL (1.5-2.4); POTASSIUM 3.5 MMOL/L (3.5-5.1); SODIUM 144 MMOL/L (135-145); TOTAL CARBON DIOXIDE 24.6 MMOL/L (24-32); eGFR 31 ML/MIN
[2017-12-18] MEDS: lactobacillus rhamnosus 10,000 MMU CELLS/CAPSULE PO SCH ×2 (08:56→21:01)
[2017-12-18] MEDS: lisinopril 20mg tablet PO SCH (08:56)
[2017-12-18] MEDS: amiodarone 200mg tablet PO SCH (08:57)
[2017-12-18] MEDS: pantoprazole 40mg Tablet.DR PO SCH (08:57)
[2017-12-18] MEDS: metoprolol tartrate 25mg tablet PO SCH ×2 (08:57→21:00)
[2017-12-18] MEDS: multivitamins, therapeutics tablet PO SCH (08:57)
[2017-12-18] MEDS: clopidogrel 75mg tablet PO SCH (08:57)
[2017-12-18] MEDS: hydrALAZINE 25 MG tablet PO SCH ×2 (08:58→17:02)
[2017-12-18] MEDS: docusate sod 100mg capsule PO SCH ×2 (08:58→21:01)
[2017-12-18] MEDS: aspirin 81mg tablet.DR PO SCH (08:58)
[2017-12-18] MEDS: ascorbic acid 500mg tablet PO SCH (08:59)
[2017-12-18] MEDS: LACTOSE-FREE FOOD 237ML (BOOST) PO SCH ×3 (08:59→18:00)
[2017-12-18] MEDS: heparin, porcine 5000 units/ml vial SQ SCH ×2 (08:59→21:00)
[2017-12-18 11:00] VITALS: BP 125/71
[2017-12-18 19:50] VITALS: BP 99/63
[2017-12-18 20:50] VITALS: BP 160/77
[2017-12-18] MEDS: insulin glargine (Lantus) pen - multi-dose SQ SCH (21:00)
[2017-12-18 23:30] VITALS: BP 160/73
[2017-12-19 01:00] VITALS: BP 180/95
[2017-12-19] MEDS: hydrALAZINE 25 MG tablet PO SCH ×4 (01:16→23:43)
[2017-12-19] MEDS: ipratropium/albuterol 3ml nebule NEB SCH ×2 (03:10→08:14)
[2017-12-19 07:19] VITALS: BP 142/67
[2017-12-19] MEDS: multivitamins, therapeutics tablet PO SCH (09:05)
[2017-12-19] MEDS: amiodarone 200mg tablet PO SCH (09:05)
[2017-12-19] MEDS: clopidogrel 75mg tablet PO SCH (09:05)
[2017-12-19] MEDS: aspirin 81mg tablet.DR PO SCH (09:05)
[2017-12-19] MEDS: lactobacillus rhamnosus 10,000 MMU CELLS/CAPSULE PO SCH ×2 (09:06→20:20)
[2017-12-19] MEDS: pantoprazole 40mg Tablet.DR PO SCH (09:06)
[2017-12-19] MEDS: metoprolol tartrate 25mg tablet PO SCH ×2 (09:07→20:20)
[2017-12-19] MEDS: docusate sod 100mg capsule PO SCH ×2 (09:08→20:20)
[2017-12-19] MEDS: ascorbic acid 500mg tablet PO SCH (09:08)
[2017-12-19] MEDS: heparin, porcine 5000 units/ml vial SQ SCH ×2 (09:09→20:21)
[2017-12-19] MEDS: LACTOSE-FREE FOOD 237ML (BOOST) PO SCH ×3 (09:10→18:00)
[2017-12-19] MEDS: lisinopril 20mg tablet PO SCH (09:14)
[2017-12-19 11:39] VITALS: BP 124/50
[2017-12-19 19:00] VITALS: BP 165/56
[2017-12-19] MEDS: insulin glargine (Lantus) pen - multi-dose SQ SCH (20:54)
[2017-12-19 23:30] VITALS: BP 175/58
[2017-12-20] MEDS: aspirin 81mg tablet.DR PO SCH (09:54)
[2017-12-20] MEDS: docusate sod 100mg capsule PO SCH (09:54)
[2017-12-20] MEDS: pantoprazole 40mg Tablet.DR PO SCH (09:55)
[2017-12-20] MEDS: hydrALAZINE 25 MG tablet PO SCH (09:55)
[2017-12-20] MEDS: clopidogrel 75mg tablet PO SCH (09:56)
[2017-12-20] MEDS: lisinopril 20mg tablet PO SCH (09:56)
[2017-12-20] MEDS: metoprolol tartrate 25mg tablet PO SCH (09:56)
[2017-12-20] MEDS: multivitamins, therapeutics tablet PO SCH (09:57)
[2017-12-20] MEDS: amiodarone 200mg tablet PO SCH (09:57)
[2017-12-20] MEDS: ascorbic acid 500mg tablet PO SCH (09:57)
[2017-12-20] MEDS: LACTOSE-FREE FOOD 237ML (BOOST) PO SCH (10:07)
[2017-12-20] MEDS: lactobacillus rhamnosus 10,000 MMU CELLS/CAPSULE PO SCH (10:07)
[2017-12-20] MEDS: heparin, porcine 5000 units/ml vial SQ SCH (10:08)
[2017-12-20 10:48] VITALS: BP 144/55
[2017-12-20 11:33] VITALS: BP 126/36
== END 2017-12-20 13:48 | disposition left against medical advice (07) | DRG 252 ==
LOC: ER 12:17 → ED HOLD 12-11 02:20 → CICU 2S 12-11 18:01 → MED 3N 12-16 19:05
PROVIDERS: ADMIT Family Medicine; ATTEND Internal Medicine
PROC: 5A1945Z Respiratory Ventilation, 24-96 Consecutive Hours (ICD-10-PCS; 2017-12-11)
PROC: 04UK07Z Supplement Right Femoral Artery with Autologous Tissue Substitute, Open Approach (ICD-10-PCS; 2017-12-11)
PROC: 04CK0ZZ Extirpation of Matter from Right Femoral Artery, Open Approach (ICD-10-PCS; 2017-12-11)
PROC: 04UK0KZ Supplement Right Femoral Artery with Nonautologous Tissue Substitute, Open Approach (ICD-10-PCS; 2017-12-11)
PROC: 04PY0DZ Removal of Intraluminal Device from Lower Artery, Open Approach (ICD-10-PCS; 2017-12-11)
PROC: 06BP3ZZ Excision of Right Saphenous Vein, Percutaneous Approach (ICD-10-PCS; 2017-12-11)
PROC: 30233N1 Transfusion of Nonautologous Red Blood Cells into Peripheral Vein, Percutaneous Approach (ICD-10-PCS; 2017-12-11)
PROC: 04CK0ZZ Extirpation of Matter from Right Femoral Artery, Open Approach (ICD-10-PCS; principal; 2017-12-11 14:40)
DX: E11.51 Type 2 diabetes mellitus with diabetic peripheral angiopathy without gangrene (principal); J96.00 Acute respiratory failure, unspecified whether with hypoxia or hypercapnia; N17.9 Acute kidney failure, unspecified; E11.22 Type 2 diabetes mellitus with diabetic chronic kidney disease; I95.9 Hypotension, unspecified; D64.9 Anemia, unspecified; E11.65 Type 2 diabetes mellitus with hyperglycemia; I48.91 Unspecified atrial fibrillation; S91.109A Unspecified open wound of unspecified toe(s) without damage to nail, initial encounter; R44.3 Hallucinations, unspecified; N18.3 Chronic kidney disease, stage 3 (moderate); F03.90 Unspecified dementia, unspecified severity, without behavioral disturbance, psychotic disturbance, mood disturbance, and anxiety; I12.9 Hypertensive chronic kidney disease with stage 1 through stage 4 chronic kidney disease, or unspecified chronic kidney disease; I25.10 Atherosclerotic heart disease of native coronary artery without angina pectoris; Z53.21 Procedure and treatment not carried out due to patient leaving prior to being seen by health care provider; Z95.1 Presence of aortocoronary bypass graft; Z88.5 Allergy status to narcotic agent; Z79.82 Long term (current) use of aspirin; Z79.84 Long term (current) use of oral hypoglycemic drugs; Z79.899 Other long term (current) drug therapy; Z87.891 Personal history of nicotine dependence; X58.XXXA Exposure to other specified factors, initial encounter; Y92.89 Other specified places as the place of occurrence of the external cause
CPT/HCPCS: 36415; 36600; 71045; 74176; 80048; 80053; 82803; 82948; 83036; 83735; 83880; 84100; 85018; 85025; 85027; 85610; 85730; 86885; 86900; 86901; 86920; 87070; 88300; 93005; 93922; 93925; 94002; 94003; 94640; 94760; 96374; 97110; 97116; 97161; 97530; 99285; A6212; A6213; A6257; A6258; A6449; A7000; A7015; C1758; C1768; J0690; J1170; J1644; J1815; J1956; J2001; J2060; J2250; J2704; J2720; J3010; J3475; J3480; J3490; J7030; J7120; P9016; P9045

== ENCOUNTER 2017-12-30 12:55 | Inpatient (IN) | payer MEDICARE, OTHER ==
[~2017-12-30] VITALS: Ht 157.5 cm; Wt 54.5 kg
[~2017-12-30 12:55] MED LIST changes: -AMIO200T57 PO; +ATOR40TA72; +CLOP75TA35 PO; +ESCI20TA38 PO; +LEVO50TA8 PO; -METO25TA6 PO
[2017-12-30 13:28] LABS: BASOPHILS % (AUTO) 0.3 % (0-1); EOSINOPHILS # (AUTO) 0.2 X10'3 (0-0.9); EOSINOPHILS % (AUTO) 1.9 % (0-6); HEMATOCRIT 28.9 % (35.0-45.0); HEMOGLOBIN 9.5 g/dl (12.0-16.0); LYMPHOCYTES # (AUTO) 1.4 X10'3 (1.1-4.8); LYMPHOCYTES % (AUTO) 12.4 % (21-51); MEAN CORPUSCULAR HEMOGLOBIN 30.3 PG (27.0-31.0); MEAN CORPUSCULAR HGB CONC 32.8 % (33.0-36.5); MEAN CORPUSCULAR VOLUME 92.4 FL (78-98); MEAN PLATELET VOLUME 7.9 FL (7.4-10.4); MONOCYTES # (AUTO) 0.6 X10'3 (0-0.9); MONOCYTES % (AUTO) 5.2 % (2-12); NEUTROPHILS # (AUTO) 9.2 X10'3 (1.8-7.7); NEUTROPHILS % (AUTO) 80.2 % (42-75); PLATELET COUNT 547 X10'3 (140-440); RED BLOOD COUNT 3.13 X10'6 (4.20-5.60); RED CELL DISTRIBUTION WIDTH 15.2 % (11.5-14.5); WHITE BLOOD COUNT 11.5 X10'3 (4.5-11.0)
[2017-12-30 13:43] LABS: ALANINE AMINOTRANSFERASE 16 U/L (12-78); ALBUMIN 3.2 G/DL (3.4-5.0); ALBUMIN/GLOBULIN RATIO 0.8 (1.1-1.5); ALKALINE PHOSPHATASE 79 IU/L (46-116); ANION GAP 18 (8-16); ASPARTATE AMINO TRANSFERASE 13 U/L (10-37); BILIRUBIN,TOTAL 0.3 MG/DL (0.1-1.0); BLOOD UREA NITROGEN 21 MG/DL (7-18); CALCIUM 9.2 MG/DL (8.5-10.1); CHLORIDE 107 MMOL/L (99-107); CREATININE 2.09 MG/DL (0.40-0.90); GLUCOSE 140 MG/DL (70-104); POTASSIUM 3.9 MMOL/L (3.5-5.1); SODIUM 144 MMOL/L (135-145); TOTAL CARBON DIOXIDE 19.5 MMOL/L (24-32); TOTAL PROTEIN 7.2 G/DL (6.4-8.2); eGFR 23 ML/MIN
[2017-12-30] MEDS ORDERED: CefTRIAXone 2gm/D5W 50ml 50 ML IV ONE (14:20)
[2017-12-30] MEDS ORDERED: vancomycin/NS 1 GM ADD-VANTAGE 250 ML IV ONE (14:20)
[2017-12-30] MEDS ORDERED: normal saline 1000ml 1,000 ML IV ONE (15:05)
[2017-12-30] MEDS: normal saline 1000ml 1,000 ML IV SCH ×2 (15:14→22:43)
[2017-12-30] MEDS ORDERED: HYDROcodone/acetaminophen 5mg/325mg tablet PO PRN (15:15)
[2017-12-30] MEDS ORDERED: acetaminophen 325mg tablet PO PRN (15:15)
[2017-12-30] MEDS ORDERED: insulin Lispro (HumaLOG) vial - multi-dose SQ SCH (15:15)
[2017-12-30] MEDS ORDERED: magnesium hydroxide 30ml (MOM) UD suspension PO PRN (15:15)
[2017-12-30] MEDS ORDERED: HYDROmorphone inj. 0.5 MG/0.5 ML DISP.SYRIN IV PRN ×2 (15:15)
[2017-12-30] MEDS ORDERED: glucagon, human recombinant 1mg kit SUBCUT PRN (15:15)
[2017-12-30] MEDS ORDERED: MESSAGE TO PHARMACY PO ONE (15:15)
[2017-12-30] MEDS ORDERED: mag hydrox/Alum hydrox/simeth 30ml oral suspension PO PRN (15:15)
[2017-12-30] MEDS ORDERED: dextrose 50%-water 50ml dispensing syringe IV PRN ×2 (15:15)
[2017-12-30] MEDS ORDERED: dextrose ORAL solution 15 GM/59 ML bottle PO PRN ×2 (15:15)
[2017-12-30] MEDS ORDERED: HYDROcodone/acetaminophen 10/325mg tab PO PRN (15:15)
[2017-12-30] MEDS ORDERED: ondansetron/PF 4mg/2ml inj IV PRN (15:15)
[2017-12-30] MEDS ORDERED: HYDROmorphone 2mg tablet PO PRN ×2 (15:45)
[2017-12-30 19:00] VITALS: BP 136/70
[2017-12-30] MEDS: HYDROmorphone 2mg tablet PO PRN (20:51)
[2017-12-30] MEDS: insulin glargine (Lantus) pen - multi-dose SQ SCH (21:00)
[2017-12-30] MEDS: acetylcysteine 200 MG/ml 4ml vial PO SCH (21:29)
[2017-12-31] VITALS (7 sets, daily range): BP systolic 124–160; BP diastolic 48–75
[2017-12-31] MEDS: HYDROmorphone 2mg tablet PO PRN ×4 (00:25→22:58)
[2017-12-31] MEDS ORDERED: VANCOMYCIN LEVEL IV SCH (03:00)
[2017-12-31 05:29] LABS: BASOPHILS % (AUTO) 0.2 % (0-1); EOSINOPHILS # (AUTO) 0.2 X10'3 (0-0.9); EOSINOPHILS % (AUTO) 2.7 % (0-6); HEMATOCRIT 23.9 % (35.0-45.0); HEMOGLOBIN 7.9 g/dl (12.0-16.0); LYMPHOCYTES # (AUTO) 1.7 X10'3 (1.1-4.8); LYMPHOCYTES % (AUTO) 19.6 % (21-51); MEAN CORPUSCULAR HEMOGLOBIN 30.2 PG (27.0-31.0); MEAN CORPUSCULAR VOLUME 91.5 FL (78-98); MEAN PLATELET VOLUME 8.1 FL (7.4-10.4); MONOCYTES # (AUTO) 0.7 X10'3 (0-0.9); MONOCYTES % (AUTO) 7.7 % (2-12); NEUTROPHILS # (AUTO) 6.1 X10'3 (1.8-7.7); NEUTROPHILS % (AUTO) 69.8 % (42-75); PLATELET COUNT 459 X10'3 (140-440); RED BLOOD COUNT 2.61 X10'6 (4.20-5.60); RED CELL DISTRIBUTION WIDTH 15.5 % (11.5-14.5); WHITE BLOOD COUNT 8.7 X10'3 (4.5-11.0)
[2017-12-31 05:48] LABS: ALBUMIN 2.6 G/DL (3.4-5.0); ANION GAP 13 (8-16); BLOOD UREA NITROGEN 18 MG/DL (7-18); BUN/CREATININE RATIO 10.2 (6.6-38.0); CALCIUM 8.4 MG/DL (8.5-10.1); CHLORIDE 111 MMOL/L (99-107); CREATININE 1.77 MG/DL (0.40-0.90); GLUCOSE 113 MG/DL (70-104); POTASSIUM 3.6 MMOL/L (3.5-5.1); SODIUM 146 MMOL/L (135-145); TOTAL CARBON DIOXIDE 21.8 MMOL/L (24-32); VANCOMYCIN,RANDOM 1.2 UG/ML; eGFR 28 ML/MIN
[2017-12-31] MEDS ORDERED: vancomycin/NS 1 GM ADD-VANTAGE 250 ML IV PRN (06:00)
[2017-12-31] MEDS ORDERED: aspirin 81mg tablet.DR PO SCH (08:00)
[2017-12-31] MEDS ORDERED: clopidogrel 75mg tablet PO SCH (08:00)
[2017-12-31] MEDS: CefTRIAXone/D5W-Rocephin 1gm 50 ML IV SCH (08:27)
[2017-12-31] MEDS: levoTHYROXINE 25mcg tablet PO SCH (08:28)
[2017-12-31] MEDS: atorvastatin 20mg tablet PO SCH (08:28)
[2017-12-31] MEDS: citalopram 20mg tablet PO SCH (08:29)
[2017-12-31] MEDS: ascorbic acid 500mg tablet PO SCH (08:29)
[2017-12-31] MEDS: acetylcysteine 200 MG/ml 4ml vial PO SCH ×2 (08:30→20:35)
[2017-12-31] MEDS: normal saline 1000ml 1,000 ML IV SCH (11:39)
[2017-12-31] MEDS ORDERED: LIDOcaine 1%/PF (10mg/ml) 5ml vial ONE (11:45)
[2017-12-31] MEDS: vancomycin/NS 1 GM ADD-VANTAGE 250 ML IV SCH (19:05)
[2017-12-31] MEDS: insulin glargine (Lantus) pen - multi-dose SQ SCH (21:00)
[2017-12-31] MEDS ORDERED: HYDROcodone/acetaminophen 5mg/325mg tablet PO PRN (22:10)
[2018-01-01] MEDS: HYDROmorphone 2mg tablet PO PRN ×2 (02:19→05:59)
[2018-01-01] MEDS: normal saline 1000ml 1,000 ML IV SCH ×2 (05:59→19:33)
[2018-01-01 07:20] VITALS: BP 146/56
[2018-01-01 08:32] LABS: BASOPHILS % (AUTO) 0.5 % (0-1); EOSINOPHILS # (AUTO) 0.3 X10'3 (0-0.9); EOSINOPHILS % (AUTO) 4.8 % (0-6); HEMATOCRIT 27.3 % (35.0-45.0); HEMOGLOBIN 9.2 g/dl (12.0-16.0); LYMPHOCYTES # (AUTO) 1.1 X10'3 (1.1-4.8); LYMPHOCYTES % (AUTO) 15.4 % (21-51); MEAN CORPUSCULAR HEMOGLOBIN 30.4 PG (27.0-31.0); MEAN CORPUSCULAR HGB CONC 33.7 % (33.0-36.5); MEAN CORPUSCULAR VOLUME 90.3 FL (78-98); MONOCYTES # (AUTO) 0.4 X10'3 (0-0.9); MONOCYTES % (AUTO) 5.6 % (2-12); NEUTROPHILS # (AUTO) 5.3 X10'3 (1.8-7.7); NEUTROPHILS % (AUTO) 73.7 % (42-75); PLATELET COUNT 537 X10'3 (140-440); RED BLOOD COUNT 3.03 X10'6 (4.20-5.60); RED CELL DISTRIBUTION WIDTH 15.5 % (11.5-14.5); WHITE BLOOD COUNT 7.2 X10'3 (4.5-11.0)
[2018-01-01 08:44] LABS: ANION GAP 12 (8-16); BLOOD UREA NITROGEN 16 MG/DL (7-18); BUN/CREATININE RATIO 9.8 (6.6-38.0); CALCIUM 8.6 MG/DL (8.5-10.1); CHLORIDE 110 MMOL/L (99-107); CREATININE 1.63 MG/DL (0.40-0.90); GLUCOSE 149 MG/DL (70-104); POTASSIUM 3.8 MMOL/L (3.5-5.1); SODIUM 144 MMOL/L (135-145); TOTAL CARBON DIOXIDE 21.9 MMOL/L (24-32); eGFR 31 ML/MIN
[2018-01-01] MEDS: CefTRIAXone/D5W-Rocephin 1gm 50 ML IV SCH (10:04)
[2018-01-01] MEDS: citalopram 20mg tablet PO SCH (10:05)
[2018-01-01] MEDS: acetylcysteine 200 MG/ml 4ml vial PO SCH (10:05)
[2018-01-01] MEDS: atorvastatin 20mg tablet PO SCH (10:05)
[2018-01-01] MEDS: levoTHYROXINE 25mcg tablet PO SCH (10:06)
[2018-01-01] MEDS: ascorbic acid 500mg tablet PO SCH (10:06)
[2018-01-01 11:00] VITALS: BP 171/59
[2018-01-01 15:04] VITALS: BP 126/48
[2018-01-01 19:00] VITALS: BP 153/45
[2018-01-01] MEDS: lactobacillus rhamnosus 10,000 MMU CELLS/CAPSULE PO SCH (19:32)
[2018-01-01] MEDS: vancomycin/NS 1 GM ADD-VANTAGE 250 ML IV SCH (19:33)
[2018-01-01] MEDS: insulin glargine (Lantus) pen - multi-dose SQ SCH (21:00)
[2018-01-02] VITALS (10 sets, daily range): BP systolic 115–207; BP diastolic 47–81
[2018-01-02 05:16] LABS: BASOPHILS % (AUTO) 0.6 % (0-1); EOSINOPHILS # (AUTO) 0.4 X10'3 (0-0.9); EOSINOPHILS % (AUTO) 5.4 % (0-6); HEMATOCRIT 23.3 % (35.0-45.0); HEMOGLOBIN 7.7 g/dl (12.0-16.0); LYMPHOCYTES # (AUTO) 1.4 X10'3 (1.1-4.8); LYMPHOCYTES % (AUTO) 21.2 % (21-51); MEAN CORPUSCULAR HEMOGLOBIN 30.3 PG (27.0-31.0); MEAN CORPUSCULAR HGB CONC 33.2 % (33.0-36.5); MEAN CORPUSCULAR VOLUME 91.3 FL (78-98); MEAN PLATELET VOLUME 8.4 FL (7.4-10.4); MONOCYTES # (AUTO) 0.4 X10'3 (0-0.9); MONOCYTES % (AUTO) 6.6 % (2-12); NEUTROPHILS # (AUTO) 4.4 X10'3 (1.8-7.7); NEUTROPHILS % (AUTO) 66.2 % (42-75); PLATELET COUNT 384 X10'3 (140-440); RED BLOOD COUNT 2.55 X10'6 (4.20-5.60); RED CELL DISTRIBUTION WIDTH 15.2 % (11.5-14.5); WHITE BLOOD COUNT 6.7 X10'3 (4.5-11.0)
[2018-01-02 05:42] LABS: ALBUMIN 2.5 G/DL (3.4-5.0); ANION GAP 12 (8-16); BLOOD UREA NITROGEN 16 MG/DL (7-18); BUN/CREATININE RATIO 10.5 (6.6-38.0); CALCIUM 8.1 MG/DL (8.5-10.1); CHLORIDE 113 MMOL/L (99-107); CREATININE 1.53 MG/DL (0.40-0.90); GLUCOSE 133 MG/DL (70-104); POTASSIUM 3.6 MMOL/L (3.5-5.1); SODIUM 145 MMOL/L (135-145); TOTAL CARBON DIOXIDE 20.2 MMOL/L (24-32); eGFR 33 ML/MIN
[2018-01-02] MEDS: lactobacillus rhamnosus 10,000 MMU CELLS/CAPSULE PO SCH ×2 (09:09→20:13)
[2018-01-02] MEDS: atorvastatin 20mg tablet PO SCH (09:09)
[2018-01-02] MEDS: levoTHYROXINE 25mcg tablet PO SCH (09:09)
[2018-01-02] MEDS: citalopram 20mg tablet PO SCH (09:10)
[2018-01-02] MEDS: ascorbic acid 500mg tablet PO SCH (09:10)
[2018-01-02] MEDS: normal saline 1000ml 1,000 ML IV SCH ×2 (09:15→23:14)
[2018-01-02] MEDS ORDERED: acetaminophen 325mg tablet PO ONE (12:50)
[2018-01-02] MEDS ORDERED: VANCOMYCIN LEVEL IV NR (18:30)
[2018-01-02] MEDS: insulin glargine (Lantus) pen - multi-dose SQ SCH (21:00)
[2018-01-02] MEDS: lisinopril 20mg tablet PO SCH (21:44)
[2018-01-02] MEDS: vancomycin/NS 1 GM ADD-VANTAGE 250 ML IV SCH (22:39)
[2018-01-03] VITALS (11 sets, daily range): BP systolic 137–208; BP diastolic 44–73
[2018-01-03] MEDS ORDERED: cloNIDine 0.1 mg tablet PO PRN (01:20)
[2018-01-03] MEDS ORDERED: loratadine 10mg tablet PO SCH (08:00)
[2018-01-03 09:20] LABS: BASOPHILS % (AUTO) 0.5 % (0-1); EOSINOPHILS # (AUTO) 0.2 X10'3 (0-0.9); EOSINOPHILS % (AUTO) 3.2 % (0-6); HEMATOCRIT 32.4 % (35.0-45.0); HEMOGLOBIN 10.8 g/dl (12.0-16.0); LYMPHOCYTES % (AUTO) 18.7 % (21-51); MEAN CORPUSCULAR HGB CONC 33.4 % (33.0-36.5); MEAN CORPUSCULAR VOLUME 89.8 FL (78-98); MEAN PLATELET VOLUME 8.1 FL (7.4-10.4); MONOCYTES # (AUTO) 0.4 X10'3 (0-0.9); MONOCYTES % (AUTO) 7.5 % (2-12); NEUTROPHILS # (AUTO) 3.7 X10'3 (1.8-7.7); NEUTROPHILS % (AUTO) 70.1 % (42-75); PLATELET COUNT 355 X10'3 (140-440); RED BLOOD COUNT 3.61 X10'6 (4.20-5.60); RED CELL DISTRIBUTION WIDTH 14.7 % (11.5-14.5); WHITE BLOOD COUNT 5.2 X10'3 (4.5-11.0)
[2018-01-03 09:32] LABS: ALBUMIN 2.6 G/DL (3.4-5.0); ANION GAP 11 (8-16); BLOOD UREA NITROGEN 18 MG/DL (7-18); BUN/CREATININE RATIO 12.5 (6.6-38.0); CALCIUM 8.3 MG/DL (8.5-10.1); CHLORIDE 109 MMOL/L (99-107); CREATININE 1.44 MG/DL (0.40-0.90); GLUCOSE 173 MG/DL (70-104); POTASSIUM 4.3 MMOL/L (3.5-5.1); SODIUM 144 MMOL/L (135-145); TOTAL CARBON DIOXIDE 23.8 MMOL/L (24-32); eGFR 35 ML/MIN
[2018-01-03] MEDS: lisinopril 20mg tablet PO SCH ×2 (10:01→20:50)
[2018-01-03] MEDS: ascorbic acid 500mg tablet PO SCH (10:01)
[2018-01-03] MEDS: lactobacillus rhamnosus 10,000 MMU CELLS/CAPSULE PO SCH ×2 (10:01→20:50)
[2018-01-03] MEDS: levoTHYROXINE 25mcg tablet PO SCH (10:02)
[2018-01-03] MEDS: citalopram 20mg tablet PO SCH (10:02)
[2018-01-03] MEDS: atorvastatin 20mg tablet PO SCH (10:02)
[2018-01-03] MEDS: clopidogrel 75mg tablet PO SCH (11:28)
[2018-01-03] MEDS: amLODIPine 5mg tablet PO SCH (13:38)
[2018-01-03] MEDS: normal saline 1000ml 1,000 ML IV SCH (13:41)
[2018-01-03] MEDS ORDERED: LORazepam 0.5 MG tablet PO PRN (17:55)
[2018-01-03] MEDS ORDERED: VANCOMYCIN LEVEL IV NR (18:30)
[2018-01-03] MEDS ORDERED: enalaprilat dihydrate 2.5mg/2ml vial IV PRN (18:30)
[2018-01-03] MEDS: vancomycin/NS 1 GM ADD-VANTAGE 250 ML IV SCH (19:00)
[2018-01-03] MEDS ORDERED: ziprasidone 20mg capsule PO PRN (19:15)
[2018-01-03] MEDS ORDERED: HYDROmorphone 2mg tablet PO ONE (19:15)
[2018-01-03] MEDS ORDERED: enalaprilat dihydrate 2.5mg/2ml vial IV SCH (20:00)
[2018-01-03] MEDS: sulfamethoxazole/trimethoprim DS (800/160mg) tablet PO SCH (20:50)
[2018-01-03] MEDS: insulin glargine (Lantus) pen - multi-dose SQ SCH (21:00)
[2018-01-03] MEDS: HYDROmorphone 2mg tablet PO PRN (22:00)
[2018-01-04] VITALS: BP 156/45
[2018-01-04] MEDS: HYDROmorphone 2mg tablet PO PRN (01:57)
[2018-01-04 05:26] LABS: BASOPHILS % (AUTO) 0.6 % (0-1); EOSINOPHILS # (AUTO) 0.2 X10'3 (0-0.9); EOSINOPHILS % (AUTO) 4.1 % (0-6); HEMOGLOBIN 10.5 g/dl (12.0-16.0); LYMPHOCYTES # (AUTO) 1.4 X10'3 (1.1-4.8); LYMPHOCYTES % (AUTO) 25.9 % (21-51); MEAN CORPUSCULAR HEMOGLOBIN 30.5 PG (27.0-31.0); MEAN CORPUSCULAR HGB CONC 33.9 % (33.0-36.5); MEAN PLATELET VOLUME 8.4 FL (7.4-10.4); MONOCYTES # (AUTO) 0.5 X10'3 (0-0.9); MONOCYTES % (AUTO) 9.5 % (2-12); NEUTROPHILS # (AUTO) 3.3 X10'3 (1.8-7.7); NEUTROPHILS % (AUTO) 59.9 % (42-75); PLATELET COUNT 338 X10'3 (140-440); RED BLOOD COUNT 3.45 X10'6 (4.20-5.60); RED CELL DISTRIBUTION WIDTH 14.9 % (11.5-14.5); WHITE BLOOD COUNT 5.6 X10'3 (4.5-11.0)
[2018-01-04 05:41] LABS: ALBUMIN 2.7 G/DL (3.4-5.0); ANION GAP 12 (8-16); BLOOD UREA NITROGEN 20 MG/DL (7-18); BUN/CREATININE RATIO 12.1 (6.6-38.0); CALCIUM 8.5 MG/DL (8.5-10.1); CHLORIDE 110 MMOL/L (99-107); CREATININE 1.65 MG/DL (0.40-0.90); GLUCOSE 126 MG/DL (70-104); POTASSIUM 3.5 MMOL/L (3.5-5.1); SODIUM 145 MMOL/L (135-145); TOTAL CARBON DIOXIDE 22.6 MMOL/L (24-32); VANCOMYCIN,TROUGH 17.4 UG/ML (6.0-14.0); eGFR 30 ML/MIN
[2018-01-04 07:00] VITALS: BP 125/48
[2018-01-04] MEDS ORDERED: VANCOMYCIN 750MG IV in NS 250 ML IV SCH (09:00)
[2018-01-04] MEDS: atorvastatin 20mg tablet PO SCH (09:17)
[2018-01-04] MEDS: levoTHYROXINE 25mcg tablet PO SCH (09:17)
[2018-01-04] MEDS: lisinopril 20mg tablet PO SCH (09:18)
[2018-01-04] MEDS: lactobacillus rhamnosus 10,000 MMU CELLS/CAPSULE PO SCH (09:18)
[2018-01-04] MEDS: sulfamethoxazole/trimethoprim DS (800/160mg) tablet PO SCH (09:18)
[2018-01-04] MEDS: clopidogrel 75mg tablet PO SCH (09:18)
[2018-01-04] MEDS: ascorbic acid 500mg tablet PO SCH (09:18)
[2018-01-04] MEDS: citalopram 20mg tablet PO SCH (09:18)
[2018-01-04] MEDS: amLODIPine 5mg tablet PO SCH (09:19)
[2018-01-04] MEDS ORDERED: BACDS PO (09:38)
[2018-01-04] MEDS ORDERED: AMLO5TAB16 PO (09:38)
[2018-01-04 11:23] VITALS: BP 132/44
[2018-01-07] MEDS ORDERED: VANCOMYCIN LEVEL IV ONE (08:30)
== END 2018-01-04 11:15 | disposition home health service (06) | DRG 856 ==
LOC: ER 12:56 → ED HOLD 15:14 → EDBEDREQ 18:28 → SUR 3N 20:07
PROVIDERS: ADMIT Family Medicine; ATTEND Family Medicine
PROC: 0Y953ZX Drainage of Right Inguinal Region, Percutaneous Approach, Diagnostic (ICD-10-PCS; principal; 2017-12-31)
PROC: 30233N1 Transfusion of Nonautologous Red Blood Cells into Peripheral Vein, Percutaneous Approach (ICD-10-PCS; 2018-01-02)
DX: T81.4XXA Infection following a procedure, initial encounter (principal); N17.0 Acute kidney failure with tubular necrosis; L03.314 Cellulitis of groin; E87.1 Hypo-osmolality and hyponatremia; E11.22 Type 2 diabetes mellitus with diabetic chronic kidney disease; E11.51 Type 2 diabetes mellitus with diabetic peripheral angiopathy without gangrene; D64.9 Anemia, unspecified; E03.9 Hypothyroidism, unspecified; E78.5 Hyperlipidemia, unspecified; I49.3 Ventricular premature depolarization; F03.90 Unspecified dementia, unspecified severity, without behavioral disturbance, psychotic disturbance, mood disturbance, and anxiety; F41.9 Anxiety disorder, unspecified; I12.9 Hypertensive chronic kidney disease with stage 1 through stage 4 chronic kidney disease, or unspecified chronic kidney disease; I25.10 Atherosclerotic heart disease of native coronary artery without angina pectoris; Y83.2 Surgical operation with anastomosis, bypass or graft as the cause of abnormal reaction of the patient, or of later complication, without mention of misadventure at the time of the procedure; N18.9 Chronic kidney disease, unspecified; Z66 Do not resuscitate; Z79.02 Long term (current) use of antithrombotics/antiplatelets; Z79.82 Long term (current) use of aspirin; Z88.6 Allergy status to analgesic agent; Z80.8 Family history of malignant neoplasm of other organs or systems; Z95.1 Presence of aortocoronary bypass graft; Z90.49 Acquired absence of other specified parts of digestive tract; Z98.1 Arthrodesis status; Y92.89 Other specified places as the place of occurrence of the external cause; Z79.84 Long term (current) use of oral hypoglycemic drugs; Z79.4 Long term (current) use of insulin
CPT/HCPCS: 10030; 36415; 76882; 80048; 80053; 80202; 82948; 83605; 85025; 86885; 86900; 86901; 86920; 87040; 87070; 93306; 96365; 96366; 99285; A6212; A6258; A6446; A6449; J0696; J1815; J2001; J2405; J3370; J7030; P9016

== ENCOUNTER 2018-07-08 06:27 | Day surgery (SDC) | payer MEDICARE ==
[~2018-07-08] VITALS: Ht 160 cm; Wt 54.5 kg
[2018-07-08] VITALS (13 sets, daily range): BP systolic 97–166; BP diastolic 48–76
[~2018-07-08 06:27] MED LIST changes: +AMLO5TAB16 PO; +BACDS PO
[2018-07-08] MEDS ORDERED: normal saline 1000ml 1,000 ML IV SCH ×2 (07:10→10:53)
[2018-07-08 08:00] LABS: ALBUMIN 3.9 G/DL (3.4-5.0); ANION GAP 14 (8-16); BLOOD UREA NITROGEN 49 MG/DL (7-18); BUN/CREATININE RATIO 20.6 (6.6-38.0); CALCIUM 9.5 MG/DL (8.5-10.1); CHLORIDE 105 MMOL/L (99-107); CREATININE 2.38 MG/DL (0.40-0.90); GLUCOSE 146 MG/DL (70-104); POTASSIUM 5.2 MMOL/L (3.5-5.1); SODIUM 140 MMOL/L (135-145); TOTAL CARBON DIOXIDE 21.2 MMOL/L (24-32); eGFR 20 ML/MIN
[2018-07-08 08:01] LABS: BASOPHILS % (AUTO) 0.3 % (0-1); EOSINOPHILS # (AUTO) 0.2 X10'3 (0-0.9); EOSINOPHILS % (AUTO) 2.3 % (0-6); HEMATOCRIT 35.1 % (35.0-45.0); HEMOGLOBIN 11.8 g/dl (12.0-16.0); LYMPHOCYTES # (AUTO) 1.4 X10'3 (1.1-4.8); LYMPHOCYTES % (AUTO) 17.3 % (21-51); MEAN CORPUSCULAR HEMOGLOBIN 32.2 PG (27.0-31.0); MEAN CORPUSCULAR HGB CONC 33.5 % (33.0-36.5); MONOCYTES # (AUTO) 0.3 X10'3 (0-0.9); MONOCYTES % (AUTO) 4.1 % (2-12); NEUTROPHILS # (AUTO) 6.2 X10'3 (1.8-7.7); PLATELET COUNT 249 X10'3 (140-440); RED BLOOD COUNT 3.65 X10'6 (4.20-5.60); RED CELL DISTRIBUTION WIDTH 13.9 % (11.5-14.5); WHITE BLOOD COUNT 8.2 X10'3 (4.5-11.0)
[2018-07-08 08:17] LABS: PROTHROMBIN TIME 9.9 SECONDS (9.0-12.0)
[2018-07-08] MEDS ORDERED: midazolam 2 mg/2 ml injection IV PRN (08:30)
[2018-07-08] MEDS ORDERED: heparin 1,000 UNITS/NS 500ml 500 ML ICATH ONE (08:30)
[2018-07-08] MEDS ORDERED: LIDOcaine 1%/PF 5ML 10 MG/ML VIAL SQ ONE (08:30)
[2018-07-08] MEDS ORDERED: fentaNYL/PF 50MCG/1 ML 2ML syringe IV PRN (08:30)
[2018-07-08] MEDS ORDERED: LIDOcaine 1% (10mg/ml) 2ml vial ONE (08:32)
[2018-07-08] MEDS ORDERED: midazolam 2 mg/2 ml injection ONE ×2 (08:33→10:09)
[2018-07-08] MEDS ORDERED: fentaNYL/PF 50MCG/1 ML 2ML syringe ONE (08:33)
[2018-07-08] MEDS ORDERED: heparin 1,000 UNITS/NS 500ml 500 ML ONE (08:33)
[2018-07-08] MEDS ORDERED: iohexol 300mg/ml 100ml inj. ONE (08:47)
[2018-07-08] MEDS ORDERED: hydrALAZINE 20mg/ml inj. IV ONE (09:40)
[2018-07-08] MEDS ORDERED: HYDROmorphone 1 mg/ml syringe ONE (09:43)
[2018-07-08] MEDS ORDERED: HYDROmorphone 1 mg/ml syringe IV ONE (10:20)
[2018-07-08] MEDS ORDERED: atropine 0.1mg/ml 10ml syringe ONE (10:36)
== END 2018-07-08 17:00 | disposition home or self-care (01) ==
LOC: SSTAY O 06:27
PROVIDERS: ATTEND Radiology Vascular & Interventional Radiology
DX: I70.201 Unspecified atherosclerosis of native arteries of extremities, right leg (principal); I74.5 Embolism and thrombosis of iliac artery; I73.9 Peripheral vascular disease, unspecified; I10 Essential (primary) hypertension; E78.5 Hyperlipidemia, unspecified; Z79.899 Other long term (current) drug therapy; Z90.49 Acquired absence of other specified parts of digestive tract; Z95.5 Presence of coronary angioplasty implant and graft; Z98.890 Other specified postprocedural states
CPT/HCPCS: 36415; 37221; 37224; 75716; 76937; 80048; 85025; 85610; 99152; 99153; C1876; J1170; J1644; J2250; J3010; J3490; J7030; Q9967; 36245; 36246; 75736; A6219; C1725; C1769; C1894; J0360; J0461